=== PATIENT | female | born 1950 | race Caucasian/White ===

== ENCOUNTER → 2016-10-18 | Outpatient (CLI) | payer OTHER | LOC: CIMAGING 12:24 | DX: Z12.31 Encounter for screening mammogram for malignant neoplasm of breast (principal); Z85.3 Personal history of malignant neoplasm of breast | CPT/HCPCS: G0202 ==

== ENCOUNTER → 2016-12-19 | Outpatient (CLI) | payer OTHER | LOC: CIMAGING 09:22 | PROVIDERS: ATTEND Internal Medicine | DX: M25.562 Pain in left knee (principal); Z87.81 Personal history of (healed) traumatic fracture; Z85.3 Personal history of malignant neoplasm of breast | CPT/HCPCS: 73562-PO; 73590-PO ==

== ENCOUNTER → 2017-09-10 | Outpatient (CLI) | payer OTHER | LOC: BRMIMAGING 10:11 | PROVIDERS: ATTEND Internal Medicine | DX: Z13.820 Encounter for screening for osteoporosis (principal); M81.0 Age-related osteoporosis without current pathological fracture ==

== ENCOUNTER → 2017-10-23 | Outpatient (CLI) | payer OTHER | LOC: CIMAGING 12:12 | PROVIDERS: ATTEND Internal Medicine | DX: Z12.31 Encounter for screening mammogram for malignant neoplasm of breast (principal); Z85.3 Personal history of malignant neoplasm of breast; Z80.3 Family history of malignant neoplasm of breast ==

== ENCOUNTER 2017-10-30 07:41 | Observation (INO) | payer OTHER ==
[2017-10-30] MEDS ORDERED: LIDO/EPI 1% **for epidural** 10 ML SDV ONE (07:47)
[2017-10-30] MEDS ORDERED: BACITRACIN ZINC 14.2 GM OINTTUBE TP ONE (07:47)
[2017-10-30] MEDS ORDERED: LIDOCAINE 1% 2 ML INJ ID PRN (08:06)
[2017-10-30] MEDS ORDERED: LR 1,000 ML IV ONE (08:06)
[2017-10-30] MEDS ORDERED: MIDAZOLAM 2 MG/2 ML VIAL IVP ONE (08:07)
--- NOTE | 2017-10-30 08:07 | PDANEPAE ---
ANE History of Present Illness PARATHYROIDECTOMY ANE Past Medical History - Cardiovascular History Hx Hypertension: No Hx Arrhythmias: No Hx Chest Pain: No Hx Coronary Artery / Peripheral Vascular Disease: No Hx CHF / Valvular Disease: No Hx Palpitations: No - Pulmonary History Hx COPD: No Hx Asthma/Reactive Airway Disease: No Hx Recent Upper Respiratory Infection: No Hx Oxygen in Use at Home: No Hx Sleep Apnea: No Sleep Apnea Screening Result - Last Documented: Negative - Neurologic History Hx Cerebrovascular Accident: No Hx Seizures: No Hx Dementia: No - Endocrine History Hx Diabetes: No Obesity: no Endocrine History Comment: hyperparathyroidism - Renal History Hx Renal Disorders: No - Liver History Hx Hepatic Disorders: No - Neurological & Psychiatric Hx Hx Neurological and Psychiatric Disorders: Yes Neurological / Psychiatric History Comment: on Effexor since 2001 after youngest son w/suicide - Cancer History Hx Cancer: Yes Cancer History Comment: L breast tx w/radiation and Tamoxifen - Congenital Disorder History Hx Congenital Disorders: No - GI History Hx Gastrointestinal Disorders: Yes Gastrointestinal History Comment: constipation x 2yrs, heartburn while supine; - Other Health History Other Health History: osteoporosis. Can bruise easily. "joints ache" - Chronic Pain History Chronic Pain: No - Surgical History Prior Surgeries: L tib/fib ORIF. bilat breast bx. hysterectomy ANE Review of Systems Review of systems is: negative Review of Systems: - Exercise capacity METS (RN): 4 METS ANE Patient History - Allergies Allergies/Adverse Reactions: No Known Allergies Allergy (Unverified 10/24/17 10:03) - Home Medications Home medications: home medication list seen and reviewed Home Medications: Cholecalciferol Vit D3 [Vitamin D3 (*)] 1,000 units PO DAILY 10/24/17 [Last Taken Unknown] Cyanocobalamin [Vitamin B12 (*)] 500 mcg PO DAILY 10/24/17 [Last Taken Unknown] Herbals/Supplements -Info Only 1 ea PO DAILY 10/24/17 [Last Taken Unknown] Linaclotide [Linzess] 145 mcg PO DAILY 10/24/17 [Last Taken Unknown] Omeprazole 40 mg PO DAILY 10/24/17 [Last Taken Unknown] Polyethylene Glycol 3350 [Miralax 17 gm (*)] 17 gm PO DAILY PRN 10/24/17 [Last Taken Unknown] Venlafaxine Xr [Effexor Xr 75MG (*)] 150 mg PO BID 03/14/18 [Last Taken Unknown] - Anes Hx Anes Hx: no prior problems - Smoking Hx Smoking Status: Former smoker - Alcohol Use Alcohol Use: None ANE Labs/Vital Signs - Vital Signs Height: 170.18 cm Weight: 68.039 kg ANE Physical Exam - Airway Neck exam: FROM Mallampati Score: Class 1 Mouth exam: normal dental/mouth exam - Pulmonary Pulmonary: no respiratory distress - Cardiovascular Cardiovascular: regular rate and rhythym - ASA Status ASA Status: II ANE Anesthesia Plan Anesthesia Plan: general endotracheal anesthesia
[2017-10-30] MEDS ORDERED: ceFAZolin 2 GM/SWFI 2 GM/20 ML SYR IVP ONE (08:27)
--- NOTE | 2017-10-30 08:27 | PDHPUP ---
History & Physical Update H&P update statement: This history and physical update is based on an assessment of the patient which was completed after admission or registration (within 24 hours), but prior to the surgery/procedure. H&P update: H&P reviewed & patient examined
[2017-10-30] MEDS ORDERED: DEXAMETHASONE 4 MG/ML VIAL ONE (08:35)
[2017-10-30] MEDS ORDERED: fentaNYL 100 MCG/2 ML INJ ONE ×2 (08:35→09:14)
[2017-10-30] MEDS ORDERED: ONDANSETRON 4 MG/2 ML VIAL ONE (08:35)
[2017-10-30] MEDS ORDERED: LIDOCAINE 2% 5 ML SDV ONE (08:35)
[2017-10-30] MEDS ORDERED: KETOROLAC 30 MG/1 ML SDV ONE (08:35)
[2017-10-30] MEDS ORDERED: SUGAMMADEX SODIUM 200 MG/2 ML VIAL IVP ONE (08:35)
[2017-10-30] MEDS ORDERED: PROPOFOL 200 MG/20 ML VIAL ONE (08:35)
[2017-10-30] MEDS ORDERED: ROCURONIUM 50 MG/5 ML VIAL ONE ×2 (08:35→09:25)
--- NOTE | 2017-10-30 09:36 | POSTANESTH ---
Post Anesthetic Evaluation Cardiovascular Status: Normal, Stable Respiratory Status: Normal, Stable Level of Consciousness/Mental Status: Can Participate in Eval Pain Control: Adequate, Prn Tx Ordered Nausea/Vomiting Control: Adequate, Prn Tx Ordered Complications Possibly Related to Anesthesia: None Noted
[2017-10-30] MEDS ORDERED: METOCLOPRAMIDE 10 MG/2 ML VIAL IVP PRN (11:27)
[2017-10-30] MEDS ORDERED: PROMETHAZINE HCL 25 MG/ML INJ IVP PRN (11:27)
[2017-10-30] MEDS ORDERED: ONDANSETRON 4 MG/2 ML VIAL IVP PRN (11:27)
[2017-10-30] MEDS ORDERED: LR 500 ML IV PRN (11:27)
[2017-10-30] MEDS ORDERED: ACETAMINOPHEN 500 MG TAB PO PRN (11:27)
[2017-10-30] MEDS ORDERED: oxyCODONE IR 5 MG TAB PO PRN (11:27)
[2017-10-30] MEDS ORDERED: fentaNYL 100 MCG/2 ML INJ IVP PRN (11:27)
[2017-10-30] MEDS ORDERED: NALOXONE HCL 0.4 MG/ML INJ IVP PRN (11:27)
[2017-10-30] MEDS ORDERED: HYDROCODONE/APAP 5/325 TAB PO PRN (11:27)
[2017-10-30] MEDS ORDERED: ALBUTEROL 3 ML DEYVIAL IH PRN (11:27)
[2017-10-30] MEDS ORDERED: HYDROmorphONE/DILAUDID 2 MG/ML INJ IVP PRN (11:27)
[2017-10-30] MEDS ORDERED: POLYETHYLENE GLYCOL 3350 17 GM PKT PO PRN (12:49)
[2017-10-30] MEDS: ONDANSETRON 4 MG/2 ML VIAL IVP PRN ×2 (13:10→18:40)
[2017-10-30] MEDS ORDERED: ceFAZolin 2 GM/DEXTROSE 100 ML IV SCH (14:00)
--- NOTE | 2017-10-30 16:47 | SOAPPROG ---
SOAP Progress Note Assessment/Plan: Assessment: 67 year old female s/p parathyroidectomy. Doing well. No signs of hypocalcemia. I ordered her home dose of effexor that she takes every night and some tylenol for pain. - Will discharge home tomorrow AM 10/30/17 16:44 Subjective: 67 year old female s/p parathyroidectomy. Doing well. No numbness/tingling. No pain. Objective: Vital Signs Temp Pulse Resp BP Pulse Ox 36.8 C 84 16 148/75 H 96 10/30/17 15:43 10/30/17 15:43 10/30/17 15:43 10/30/17 15:43 10/30/17 15:43 10/29/17 10/30/17 10/31/17 05:59 05:59 05:59 Intake Total 900 Output Total 25 Balance 875 Neck flat Dressing intact Voice strong OP normal Negative [place] sign ICD10 Worksheet Patient Problems: Problems Problem Status Onset H/O parathyroidectomy Acute - ICD10 Problem Qualifiers (1) H/O parathyroidectomy
--- NOTE | 2017-10-30 17:42 | GOP ---
[f rep st] OPERATIVE REPORT DATE OF OPERATION: 10/30/2017 SURGEON: Jesus Colbert MD WEB SITE PROJECT MANAGER: Xander Ulloa MD ANESTHESIA: General. PREOPERATIVE DIAGNOSIS: Hyperparathyroidism. POSTOPERATIVE DIAGNOSIS: Hyperparathyroidism. PROCEDURE PERFORMED: Parathyroid exploration with removal of right superior parathyroid adenoma. FINDINGS: The right inferior parathyroid gland was normal in size and not hypercellular. The superi or gland, however, was located and found to be significantly larger, and hypercellular by frozen sect ion evaluation. The parathyroid hormone level dropped from 54 to 8.5 following removal of the superi or adenoma. ESTIMATED BLOOD LOSS: Under 50 mL. INDICATIONS: The patient is a 67-year-old woman diagnosed with hypercalcemia and osteopenia. Her en docrinologist evaluated her and found her to have an elevated 24-hour urine calcium excretion and an elevated PTH level. A sestamibi scan was performed, which showed likely right inferior parathyroid a denoma. DESCRIPTION OF PROCEDURE: Patient was taken to the OR, positively identified, placed on monitors, an d general endotracheal anesthesia was induced. The patient was prepped and draped in normal sterile fashion. A 2 cm incision was marked out in the midline of the neck, infiltrated with 3 cc of 1% lido daisy with 1:200,000 epinephrine. The skin was then sharply incised. Dissection was carried down to the strap muscles. The strap muscles were divided in the midline and elevated off the right thyroid lobe. The thyroid gland was rotated medially. The inferior gland was identified, dissected off the thyroid capsule, and sent for pathologic evaluation. It was found to show normal cellularity. The PTH baseline was 54. It dropped to 47. I explored more superiorly, and dividing the middle thyroid vein with the hemoclips and rotating the gland medially. There was a knuckle of abnormal appearing t hyroid tissue directly anterior to the recurrent laryngeal nerve. Behind this was located the superi or parathyroid gland, which was significantly large and dark in color. This was dissected away, ligia joshua, and sent for pathologic evaluation, which found hypercellularity and a significantly larger size than the normal range. The parathyroid hormone was redrawn, and had dropped from 54 down to 8.5. The wound was irrigated with sterile saline solution. No bleeding was found. Once hemostasis was as sured, the wound was closed with interrupted 3-0 Vicryl for the strap muscles in the midline, some in terrupted 4-0 Monocryls, and running 5-0 Prolene followed by a sterile dressing. The case was termin ated. The patient tolerated the procedure well. COMPLICATIONS: None. Copy requested to: Nathan Lambert MD [address] [place] [address]. [address] [place], [place] [address] /[id number]/MODL
[2017-10-30] MEDS: ceFAZolin 2 GM/SWFI 2 GM/20 ML SYR IVP SCH (17:47)
[2017-10-30] MEDS: ACETAMINOPHEN 500 MG TAB PO PRN (17:53)
[2017-10-30] MEDS: VENLAFAXINE XR 150 MG CAP PO SCH (20:37)
[2017-10-31] MEDS: ceFAZolin 2 GM/SWFI 2 GM/20 ML SYR IVP SCH ×2 (00:49→08:59)
[2017-10-31] MEDS: ACETAMINOPHEN 500 MG TAB PO PRN ×2 (00:55→09:03)
[2017-10-31 04:20] VITALS: O2SAT 96
[2017-10-31 07:39] VITALS: BP 134/71; PULSE 75; RESP 14; TEMP 98.6
--- NOTE | 2017-10-31 08:45 | SOAPPROG ---
SOAP Progress Note Assessment/Plan: Assessment: Pt doing well. Plan: Will discharge the patient after she has her ionized calcium drawn. She has a follow up appt next sunday from suture removal 10/31/17 08:43 Subjective: Pt eating breakfast and feelin well. Little pain and she has no sxs of low calcium. Objective: Vital Signs Temp Pulse Resp BP Pulse Ox 37 C 75 14 134/71 H 96 10/31/17 07:37 10/31/17 07:37 10/31/17 07:37 10/31/17 07:37 10/31/17 07:37 10/30/17 10/31/17 11/01/17 05:59 05:59 05:59 Intake Total 1368 Output Total 1525 Balance -157 Neck looks good. No signs of hematoma. ICD10 Worksheet Patient Problems: Problems Problem Status Onset H/O parathyroidectomy Acute
[2017-10-31] MEDS: VENLAFAXINE XR 150 MG CAP PO SCH (09:01)
== END 2017-10-31 11:00 | disposition home or self-care (01) ==
LOC: F3E 07:41
PROVIDERS: ADMIT Otolaryngology; ATTEND Otolaryngology
DX: E21.0 Primary hyperparathyroidism (principal); E04.1 Nontoxic single thyroid nodule; F41.9 Anxiety disorder, unspecified; M85.89 Other specified disorders of bone density and structure, multiple sites; Z87.891 Personal history of nicotine dependence; Z85.3 Personal history of malignant neoplasm of breast
CPT/HCPCS: 60500; 88305; 88331; G0378; J0690; J1100; J1885; J2250; J2405; J2704; J3010